=== PATIENT | male | born 1975 | race Hispanic/Latino ===

== ENCOUNTER → 2017-11-03 | Outpatient (CLI) | payer OTHER | END | disposition home or self-care (01) | LOC: OIH 10:23 | PROVIDERS: ATTEND Family Medicine | DX: Z02.71 Encounter for disability determination (principal); M25.572 Pain in left ankle and joints of left foot; M19.072 Primary osteoarthritis, left ankle and foot; M77.32 Calcaneal spur, left foot; M79.89 Other specified soft tissue disorders; M54.5 Low back pain; M16.11 Unilateral primary osteoarthritis, right hip; M47.896 Other spondylosis, lumbar region; M25.552 Pain in left hip | CPT/HCPCS: 72100; 73502; 73600 ==

== ENCOUNTER 2024-06-03 06:24 | Day surgery (SDC) | payer MEDICARE, OTHER ==
[2024-06-02 11:08] LABS: POTASSIUM 4.2 mmol/L (3.5-5.1)
[2024-06-02 11:17] LABS: BASOPHILS # (AUTO) 0.05 K/uL (0.00-0.20); BASOPHILS % (AUTO) 0.8 % (0.0-5.0); EOSINOPHILS # (AUTO) 0.11 K/uL (0.00-0.70); EOSINOPHILS % (AUTO) 1.7 % (0.0-8.0); HEMATOCRIT 42.1 % (42-54); IMMATURE GRANULOCYTE ABSOLUTE 0.04 K/uL (0-1); LYMPHOCYTES # (AUTO) 2.1 K/uL (1.0-4.8); LYMPHOCYTES % (AUTO) 32.2 % (21.0-51.0); MEAN CORPUSCULAR HEMOGLOBIN 28.5 pg (27.0-33.0); MEAN CORPUSCULAR HGB CONC 32.5 g/dL (32.0-36.0); MEAN CORPUSCULAR VOLUME 87.7 fL (79-99); MONOCYTES # (AUTO) 0.7 K/uL (0.1-1.0); MONOCYTES % (AUTO) 10.3 % (3.0-13.0); NEUTROPHILS # (AUTO) 3.5 K/uL (1.8-7.7); NEUTROPHILS % (AUTO) 54.4 % (40.0-77.0); PLATELET COUNT (AUTO) 272 K/uL (130-400); RED CELL DISTRIBUTION WIDTH 14.7 % (11.0-15.5); WHITE BLOOD COUNT (AUTO) 6.4 K/uL (4.8-10.8)
[2024-06-02 11:27] VITALS: BP 118/72; PULSE 85; RESP 17; TEMP 98.4
[2024-06-03] VITALS (16 sets, daily range): BP systolic 102–144; BP diastolic 62–82; PULSE 62–72; RESP 14–20; TEMP 97.9–98
[~2024-06-03] VITALS: Ht 185.4 cm; Wt 113.1 kg
[~2024-06-03 06:24] MED LIST: 0.9%NACL 1000ML 1,000 ML IV ONE; AMIT100T2 PO; ATOR40TA69 PO; GABA300C PO; HYDR-4068 PO; LISI20TA24 PO; METF-444 PO; OMEP40CA21 PO; SERT-438 PO; TIZA-194 PO; ZOLP10TA2 PO
[2024-06-03] MEDS ORDERED: FENTanyl CITRate PF 50 MCG/1 ML 2ML VIAL ONE ×2 (07:03→08:16)
[2024-06-03] MEDS ORDERED: proPOFol 10 MG/ML 20ML VIAL IV ONE ×3 (07:03→08:39)
[2024-06-03] MEDS ORDERED: MIDAZOLAM HCL 1 MG/ML 2ML VIAL ONE (07:04)
[2024-06-03] MEDS ORDERED: ROPivacaine 0.5% 5MG/ML 30ML ONE (07:14)
[2024-06-03] MEDS ORDERED: ONDANSETRON 4MG INJ ONE (07:16)
[2024-06-03] MEDS: ceFAZolin SODIUM 2 GM VIAL ONE (07:30)
[2024-06-03] MEDS ORDERED: ketaMINE 50MG/ML SYRINGE 50 MG/ML DISP.SYRIN ONE (08:00)
[2024-06-03] MEDS: LIDOCAINE HCL 1% 20 ML VIAL ONE (08:14)
[2024-06-03] MEDS: BUPIvacaine/PF 0.5% 30ML VIAL ONE (08:14)
[2024-06-03] MEDS: ONDANSETRON 4MG INJ ONE (09:43)
[2024-06-03] MEDS: MEPERIDINE-PF 25 MG/ML SYG ONE ×2 (09:45→09:47)
== END 2024-06-03 11:15 | disposition home or self-care (01) ==
LOC: SUH 06:24 → DAH 06:24 → SUH 11:15
PROVIDERS: ATTEND Podiatrist
DX: S91.302A Unspecified open wound, left foot, initial encounter (principal); M24.572 Contracture, left ankle; I10 Essential (primary) hypertension; K21.9 Gastro-esophageal reflux disease without esophagitis; E66.01 Morbid (severe) obesity due to excess calories; G47.00 Insomnia, unspecified; E11.9 Type 2 diabetes mellitus without complications; Z79.899 Other long term (current) drug therapy; Z68.32 Body mass index [BMI] 32.0-32.9, adult; X58.XXXA Exposure to other specified factors, initial encounter; Y93.89 Activity, other specified; Y92.89 Other specified places as the place of occurrence of the external cause; Y99.8 Other external cause status
CPT/HCPCS: 80048; 85025; 36415; 27658 ×2; 97161; 27685; 28008; 13132; 87076; 87086; 87186; 82948 ×2; 88305; 97116; 87070; A6260; A4663; A4606; J3010 ×2; J7030; J2250; J2704 ×3; J2405 ×2; J0665; J2175 ×2; J2795; J3490; J0690; A4649 ×3; A4215; A4223; A4222; A4221; A5113; 87205